=== PATIENT | male | born 1965 | race Caucasian/White ===

== ENCOUNTER 2016-08-26 18:06 | Emergency (ER) | payer OTHER ==
[2016-08-26] MEDS ORDERED: ALBUTEROL SULFATE 2.5 MG/0.5 ML INH NEB SOLN As Ordered ONE (19:20)
--- NOTE | 2016-08-26 19:22 | REP ---
PA and lateral chest: There are no comparisons. The lung mei are clear. The cardiac size is normal The bobbi, mediastinum, and bony thorax are unremarkable. Impression: Negative PA and lateral chest. Signed by Bayron Fabian MD 08/26/2016 07:14 P
[2016-08-26 19:39] LABS: BASO % 0.7 % (0.0-1.0); EOS % 1.1 % (0.0-3.0); LARGE UNSTAINED CELL # 0.1 K/mm3 (0.0-0.4); LYMPH # 1.5 K/mm3 (1.5-4.5); LYMPH % 30.3 % (24.0-44.0); MEAN CORPUSCULAR HEMOGLOBIN 29.9 pg (27.0-33.0); MEAN CORPUSCULAR HGB CONC 34.4 g/dl (32.0-36.5); MEAN CORPUSCULAR VOLUME 86.8 fl (80.0-96.0); MONO # 0.3 K/mm3 (0.0-0.8); NEUTROPHILS # 2.8 K/mm3 (1.8-7.7); NEUTROPHILS % 58.8 % (36.0-66.0); PLATELET COUNT, AUTOMATED 145 k/mm3 (150-450); RED CELL DISTRIBUTION WIDTH 11.4 % (11.5-14.5); WHITE BLOOD COUNT 4.8 K/mm3 (4.0-10.0)
[2016-08-26 19:59] LABS: ANION GAP 7 MEQ/L (8-16); BLOOD UREA NITROGEN 17 MG/DL (7-18); CALCIUM LEVEL 8.3 MG/DL (8.5-10.1); CARBON DIOXIDE LEVEL 31 MEQ/L (21-32); CHLORIDE LEVEL 106 MEQ/L (98-107); CREATININE FOR GFR 1.04 MG/DL (0.70-1.30); GLOMERULAR FILTRATION RATE > 60.0 (>56); GLUCOSE, FASTING 91 MG/DL (70-105); POTASSIUM SERUM 3.8 MEQ/L (3.5-5.1); SODIUM LEVEL 144 MEQ/L (136-145)
[2016-08-26] MEDS ORDERED: DOXYCYCLINE HYCLATE 100 MG TAB As Ordered ONE (20:39)
[2016-08-26] MEDS ORDERED: predniSONE 20 MG TAB As Ordered ONE (20:39)
[2016-08-26] MEDS ORDERED: BENZONATATE 100 MG CAP As Ordered ONE (20:39)
--- NOTE | 2016-08-26 20:52 | EDDOCDS ---
Physician Documentation [facility] Name: Alejandro Guadarrama Age: 50 yrs Sex: Male : 1965 Arrival Date: 08/26/2016 Time: 18:06 Bed TR1 Private MD: Dayana Jones G. Disposition: 08/26/16 20:26 Discharged to Home/Self Care. Impression: Acute bronchitis. - Condition is Stable. - Discharge Instructions: Acute Bronchitis. - Prescriptions for Doxycycline Hyclate 100 mg Oral Tablet - take 1 tablet by ORAL route every 12 hours; 20 tablet. Prednisone 20 mg Oral Tablet - take 2 tablet by ORAL route once daily for 5 days; 10 tablet. benzonatate 200 mg Oral Capsule - take 1 capsule by ORAL route 3 times per day As needed; 30 capsule. - Medication Reconciliation, Local Pharmacy Hours form. - Follow up: Dayana Jones; When: 2 - 3 days; Reason: Recheck today's complaints, Continuance of care. - Problem is new. - Symptoms have improved. Historical: - Allergies: Bees; - Home Meds: 1. meloxicam 7.5 mg oral tab 1 tab once daily (Last dose: 08/25/2016) 2. Prilosec 10 mg Oral cpDR once daily 3. ibuprofen 200 mg Oral tab 2 tabs as needed (Last dose: 08/26/2016 09:30) - PMHx: GERD; Arthritis; - PSHx: none; - Social history: Smoking status: Patient states former smoker of tobacco. No barriers to communication noted, The patient speaks fluent Chilean, Speaks appropriately for age. - Family history: Not pertinent. - : The pt / caregiver states he / she is not on anticoagulants. Home medication list is obtained from the patient. - Exposure Risk Screening:: None identified. Vital Signs: 08/26 18:08 BP 127 / 77; Pulse 81; Resp 18 S; Temp 98.1(O); Pulse Ox 98% on R/A; Weight 79.38 kg / dd6 175 lbs (R); Height 5 ft. 10 in. (177.80 cm) (R); 20:36 BP 122 / 70; Pulse 80; Resp 17; Temp 100.6(TE); Pulse Ox 99% on R/A; lr2 18:08 Body Mass Index 25.11 (79.38 kg, 177.80 cm) dd6 MDM: 19:03 -Blood Culture (Adults Only), peripheral from different site, or from device/port/PICC ck7 etc. if present ordered. 19:03 Albuterol 2.5 mg Nebulizer once ordered. ck7 19:03 Call Respiratory ordered. ck7 19:03 Obtain sample by nasopharyngeal swab ordered. ck7 19:04 CBC with Diff Ordered. EDMS 19:04 MED Profile Ordered. EDMS 19:04 -Blood Culture Ordered. EDMS 19:04 -Influenza A&B Rapid Antigen - Nose Ordered. EDMS 19:05 Chest, 2 View (pa\E\lat) Ordered. EDMS 19:20 Call Respiratory complete. lr2 19:33 -Blood Culture (Adults Only), peripheral from different site, or from device/port/PICC lr2 etc. if present complete. 19:37 BLOOD CULTURES Ordered. EDMS 19:49 CBC with Diff Reviewed. ck7 19:49 Chest, 2 View (pa\E\lat) Reviewed. ck7 20:03 Financial registration complete. zo 20:03 MED Profile Reviewed. ck7 20:23 -Influenza A&B Rapid Antigen - Nose Reviewed. ck7 20:24 predniSONE 40 mg PO once; administer with food or milk ordered. ck7 20:24 Doxycycline 100 mg PO once ordered. ck7 20:24 Tessalon 200 mg PO once ordered. ck7 20:40 [facility] Payment Agreement was scanned into [employer] and attached to record. zo Administered Medications: 19:34 Drug: Albuterol 2.5 mg [albuterol sulfate 2.5 mg/0.5 mL solution for nebulization (0.5 jc3 mL)] Route: Nebulizer; 20:46 Drug: predniSONE 40 mg [prednisone 20 mg tablet (2 tabs)] Route: PO; jo3 20:46 Drug: Doxycycline 100 mg [doxycycline hyclate 100 mg tablet (1 tabs)] Route: PO; jo3 20:46 Drug: Tessalon 200 mg Route: PO; jo3 Signatures: Dispatcher [employer] EDMS Lidia Fox RN RN jo3 Jose Vieira Christopher, LORE-C RPA-Cck7 Ariana Sandoval RN RN Marta Garcia2 Taras Chand jc3 The chart was reviewed and I authenticate all verbal orders and agree with the evaluation and treatment provided.Attachments: 20:40 [facility] [place] Payment Agreement zo MTDD
--- NOTE | 2016-08-26 20:52 | EDDOCDS ---
Nurse's Notes [facility] Name: Alejandro Guadarrama Age: 50 yrs Sex: Male : 1965 Arrival Date: 08/26/2016 Time: 18:06 Bed TR1 Private MD: Dayana Jones G. Diagnosis: Acute bronchitis Presentation: 08/26 18:11 Presenting complaint: Patient states: It feels like I have acute bronchitis. I'm js15 difficulty breathing and when I cough it feels like my chest is coming up". Adult Sepsis Screening: The patient does not have new or worsening altered mentation. Patient's respiratory rate is less than 22. Systolic blood pressure is greater than 100. Patient has a qSOFA score of 0- Negative Sepsis Screen. Suicide/Homicide risk assessment- the patient denies having any suicidal and/or homicidal ideations and does not present with any other emotional, behavioral or mental health complaints. Status: . Transition of care: patient was not received from another setting of care. 18:11 Acuity: XIMENA Level 4 js15 18:11 Method Of Arrival: Walkin/Carried/Asstd js15 Triage Assessment: 18:15 General: Appears in no apparent distress, Behavior is appropriate for age, cooperative. js15 Pain: Location: chest Pain currently is 5 out of 10 on a pain scale. Is intermittent Aggravated by coughing. HIV screening NA for this visit Offered previously. Respiratory: Reports cough that is productive, pain with cough. Derm: Skin is pink, warm & dry. Historical: - Allergies: Bees; - Home Meds: 1. meloxicam 7.5 mg oral tab 1 tab once daily (Last dose: 08/25/2016) 2. Prilosec 10 mg Oral cpDR once daily 3. ibuprofen 200 mg Oral tab 2 tabs as needed (Last dose: 08/26/2016 09:30) - PMHx: GERD; Arthritis; - PSHx: none; - Social history: Smoking status: Patient states former smoker of tobacco. No barriers to communication noted, The patient speaks fluent Egyptian, Speaks appropriately for age. - Family history: Not pertinent. - : The pt / caregiver states he / she is not on anticoagulants. Home medication list is obtained from the patient. - Exposure Risk Screening:: None identified. Screenin:47 Screening information is obtained from the patient. Fall risk: No risks identified. jo3 Assistance ADL's: requires no assistance with activities of daily living. Abuse/DV Screen: The patient / caregiver reports he/she is: not in a situation that causes fear, pain or injury. Nutritional screening: No deficits noted. Advance Directives: There is no active DNR order. home support is adequate. Assessment: 20:47 Reassessment: Patient appears in no apparent distress at this time. Patient states jo3 feeling better. Patient states symptoms have improved. Neurological: No deficits noted. Level of Consciousness is awake, alert, Oriented to person, place, time. Respiratory: Airway is patent Respiratory effort is even, unlabored. Derm: Skin is pink, warm & dry. Vital Signs: 18:08 BP 127 / 77; Pulse 81; Resp 18 S; Temp 98.1(O); Pulse Ox 98% on R/A; Weight 79.38 kg dd6 (R); Height 5 ft. 10 in. (177.80 cm) (R); 20:36 BP 122 / 70; Pulse 80; Resp 17; Temp 100.6(TE); Pulse Ox 99% on R/A; lr2 18:08 Body Mass Index 25.11 (79.38 kg, 177.80 cm) dd6 Vitals: 18:08 Log In Time: August 26, 2016 at 18:06. dd6 ED Course: 18:07 Patient visited by Reno Miramontes PCA. dd6 18:07 Dayana Jones is Private Physician. dd6 18:07 Patient moved to Waiting dd6 18:09 Patient moved to Pre RCE dd6 18:12 Triage Initiated js15 18:30 Patient moved to Triage 1 jb5 18:34 [facility] ck7 18:34 Blanca Leung MD is Attending Physician. ck7 18:34 Patient visited by Jimenez Caldwell RPA-C. ck7 19:05 Patient moved to PD jo3 19:13 Patient visited by Jimenez Caldwell RPA-C. ck7 19:36 -Blood Culture Sent. lr2 19:36 MED Profile Sent. lr2 19:36 CBC with Diff Sent. lr2 19:36 -Influenza A&B Rapid Antigen - Nose Sent. lr2 19:37 BLOOD CULTURES Sent. lr2 19:47 Patient visited by Jimenez Caldwell RPA-C. ck7 19:49 Chest, 2 View (pa\\E\\lat) Returned. EDMS 20:23 Patient visited by Jimenez Caldwell RPA-C. ck7 20:26 Dayana Jones is Referral Physician. ck7 20:40 [facility] Payment Agreement was scanned into [employer] and attached to record. zo 20:46 Patient moved to TR1 lr2 20:47 The patient / caregiver is instructed regarding the plan of care and ED course. jo3 20:47 No IV's were initiated during this patient's visit. No procedures done that require jo3 assistance. Administered Medications: 19:34 Drug: Albuterol 2.5 mg [albuterol sulfate 2.5 mg/0.5 mL solution for nebulization (0.5 jc3 mL)] Route: Nebulizer; 20:46 Drug: predniSONE 40 mg [prednisone 20 mg tablet (2 tabs)] Route: PO; jo3 20:46 Drug: Doxycycline 100 mg [doxycycline hyclate 100 mg tablet (1 tabs)] Route: PO; jo3 20:46 Drug: Tessalon 200 mg Route: PO; jo3 RT: 19:34 Initial Med Neb Given as ordered. Respiratory: Breath sounds are coarse bilaterally. jc3 Breath sounds with wheezes bilaterally. in right middle lobe, left lower lobe and right lower lobe. 19:38 Respiratory: Breath sounds with crackles bilaterally. in left lower lobe, right lower jc3 lobe, left posterior lower lobe, right posterior middle lobe and right posterior lower lobe Breath sounds with wheezes. Order Results: Lab Order: CBC with Diff; SPEC'M 08/26/16 19:29 Test: WHITE BLOOD COUNT; Value: 4.8; Range: 4.0-10.0; Units: K/mm3; Status: F Test: RED BLOOD COUNT; Value: 5.21; Range: 4.30-6.10; Units: M/mm3; Status: F Test: HEMOGLOBIN; Value: 15.6; Range: 14.0-18.0; Units: g/dl; Status: F Test: HEMATOCRIT; Value: 45.2; Range: 42.0-52.0; Units: %; Status: F Test: MEAN CORPUSCULAR VOLUME; Value: 86.8; Range: 80.0-96.0; Units: fl; Status: F Test: MEAN CORPUSCULAR HEMOGLOBIN; Value: 29.9; Range: 27.0-33.0; Units: pg; Status: F Test: MEAN CORPUSCULAR HGB CONC; Value: 34.4; Range: 32.0-36.5; Units: g/dl; Status: F Test: RED CELL DISTRIBUTION WIDTH; Value: 11.4; Range: 11.5-14.5; Abnormal: Below low normal; Units: %; Status: F Test: PLATELET COUNT, AUTOMATED; Value: 145; Range: 150-450; Abnormal: Below low normal; Units: k/mm3; Status: F Test: NEUTROPHILS %; Value: 58.8; Range: 36.0-66.0; Units: %; Status: F Test: LYMPH %; Value: 30.3; Range: 24.0-44.0; Units: %; Status: F Test: MONO %; Value: 6.0; Range: 0.0-5.0; Abnormal: Above high normal; Units: %; Status: F Test: EOS %; Value: 1.1; Range: 0.0-3.0; Units: %; Status: F Test: BASO %; Value: 0.7; Range: 0.0-1.0; Units: %; Status: F Test: LARGE UNSTAINED CELL %; Value: 3.0; Range: 0.0-4.0; Units: %; Status: F Test: NEUTROPHILS #; Value: 2.8; Range: 1.8-7.7; Units: K/mm3; Status: F Test: LYMPH #; Value: 1.5; Range: 1.5-4.5; Units: K/mm3; Status: F Test: MONO #; Value: 0.3; Range: 0.0-0.8; Units: K/mm3; Status: F Test: EOS #; Value: 0.0; Range: 0.0-0.50; Units: K/mm3; Status: F Test: BASO #; Value: 0.0; Range: 0.0-0.2; Units: K/mm3; Status: F Test: LARGE UNSTAINED CELL #; Value: 0.1; Range: 0.0-0.4; Units: K/mm3; Status: F Lab Order: MED Profile; SPEC'M 08/26/16 19:29 Test: GLUCOSE, FASTING; Value: 91; Range: 70-105; Units: MG/DL; Status: F Test: BLOOD UREA NITROGEN; Value: 17; Range: 7-18; Units: MG/DL; Status: F Test: CREATININE FOR GFR; Value: 1.04; Range: 0.70-1.30; Units: MG/DL; Status: F Test: GLOMERULAR FILTRATION RATE; Value: > 60.0; Range: >56; Status: F Test: SODIUM LEVEL; Value: 144; Range: 136-145; Units: MEQ/L; Status: F Test: POTASSIUM SERUM; Value: 3.8; Range: 3.5-5.1; Units: MEQ/L; Status: F Test: CHLORIDE LEVEL; Value: 106; Range: 98-107; Units: MEQ/L; Status: F Test: CARBON DIOXIDE LEVEL; Value: 31; Range: 21-32; Units: MEQ/L; Status: F Test: ANION GAP; Value: 7; Range: 8-16; Abnormal: Below low normal; Units: MEQ/L; Status: F Test: CALCIUM LEVEL; Value: 8.3; Range: 8.5-10.1; Abnormal: Below low normal; Units: MG/DL; Status: F Test Note: ; Units are mL/min/1.73 m2 Chronic Kidney Disease Staging per NKF: Stage I & II GFR >=60 Normal to Mildly Decreased Stage III GFR 30-59 Moderately Decreased Stage IV GFR 15-29 Severely Decreased Stage V GFR <15 Very Little GFR Left ESRD GFR <15 on [employer]IAL SERVICE WORKER Lab Order: -Influenza A&B Rapid Antigen - Nose; SPEC'M 08/26/16 19:33 Test: INFLUENZA A RAPID SCR by ICA; Value: INFLUENZA A RESULTS NEGATIVE; Status: F Test: INFLUENZA A RAPID SCR by ICA; Value: Comments:; Status: F Test: INFLUENZA B RAPID SCR by ICA; Value: INFLUENZA B RESULTS NEGATIVE; Status: F Test Note: ; The Influenza test is a direct rapid immunoassay for the qualitative detection of Influenza viral antigen. Cell culture (Viral Culture) testing should be considered to confirm NEGATIVE results and to assist in detecting other viruses that can provide similar clinical symptoms. Please contact the lab within 24 hours ([phone]) if confirmatory testing is desired. Radiology Order: Chest, 2 View (pa\\E\\lat) Test: Chest, 2 View (pa\\E\\lat) REASON FOR EXAMINATION: Cough; PA and lateral chest:; ; There are no comparisons.; ; ; ; The lung mei are clear. The cardiac size is normal; ; The bobbi, mediastinum, and bony thorax are unremarkable.; ; Impression:; ; Negative PA and lateral chest.; ; ; Signed by; Bayron Fabian MD 08/26/2016 07:14 P; Outcome: 20:26 Discharge ordered by Provider. ck7 20:47 Discharge Assessment: Patient awake, alert and oriented x 3. No cognitive and/or jo3 functional deficits noted. Patient verbalized understanding of disposition instructions. patient administered narcotics - no. The following High Risk Discharge criteria are identified: None. Discharged to home ambulatory, with significant other. Condition: stable Condition: improved. Discharge instructions given to patient, Instructed on discharge instructions, follow up and referral plans. medication usage, Demonstrated understanding of instructions, medications, Pt was receptive of discharge instructions/ teaching. Prescriptions given X 3. No special radiology studies were completed. Property sent home with patient. 20:51 Patient left the ED. jo3 Signatures: Dispatcher [employer] EDMS Ada Gutierrez, HVAC ENGINEERING TECHNICIAN HVAC ENGINEERING TECHNICIAN jb5 Lidia Fox RN RN jo3 Jose Vieira Joseph jc3 Reno Miramontes, HVAC ENGINEERING TECHNICIAN HVAC ENGINEERING TECHNICIAN dd6 Jimenez Caldwell, RPA-C RPA-Cck7 Ariana Sandoval,RN RN js15 Marta Long lr2 Corrections: (The following items were deleted from the chart) 20:46 20:36 BP 122 / 70; Pulse 80bpm; Resp 17bpm; Pulse Ox 80% RA; Temp 100.6F Temporal; lr2 lr2 MTDD
--- NOTE | 2016-08-28 21:53 | EDDOCDS ---
Physician Documentation [facility] Name: Alejandro Guadarrama Age: 50 yrs Sex: Male : 1965 Arrival Date: 08/26/2016 Time: 18:06 Bed TR1 Private MD: Dayana Jones G. Disposition: 08/26/16 20:26 Discharged to Home/Self Care. Impression: Acute bronchitis. - Condition is Stable. - Discharge Instructions: Acute Bronchitis. - Prescriptions for Doxycycline Hyclate 100 mg Oral Tablet - take 1 tablet by ORAL route every 12 hours; 20 tablet. Prednisone 20 mg Oral Tablet - take 2 tablet by ORAL route once daily for 5 days; 10 tablet. benzonatate 200 mg Oral Capsule - take 1 capsule by ORAL route 3 times per day As needed; 30 capsule. - Medication Reconciliation, Local Pharmacy Hours form. - Follow up: Dayana Jones; When: 2 - 3 days; Reason: Recheck today's complaints, Continuance of care. - Problem is new. - Symptoms have improved. Historical: - Allergies: Bees; - Home Meds: 1. meloxicam 7.5 mg oral tab 1 tab once daily (Last dose: 08/25/2016) 2. Prilosec 10 mg Oral cpDR once daily 3. ibuprofen 200 mg Oral tab 2 tabs as needed (Last dose: 08/26/2016 09:30) - PMHx: GERD; Arthritis; - PSHx: none; - Social history: Smoking status: Patient states former smoker of tobacco. No barriers to communication noted, The patient speaks fluent Argentine, Speaks appropriately for age. - Family history: Not pertinent. - : The pt / caregiver states he / she is not on anticoagulants. Home medication list is obtained from the patient. - Exposure Risk Screening:: None identified. Vital Signs: 08/26 18:08 BP 127 / 77; Pulse 81; Resp 18 S; Temp 98.1(O); Pulse Ox 98% on R/A; Weight 79.38 kg / dd6 175 lbs (R); Height 5 ft. 10 in. (177.80 cm) (R); 20:36 BP 122 / 70; Pulse 80; Resp 17; Temp 100.6(TE); Pulse Ox 99% on R/A; lr2 18:08 Body Mass Index 25.11 (79.38 kg, 177.80 cm) dd6 MDM: 19:03 -Blood Culture (Adults Only), peripheral from different site, or from device/port/PICC ck7 etc. if present ordered. 19:03 Albuterol 2.5 mg Nebulizer once ordered. ck7 19:03 Call Respiratory ordered. ck7 19:03 Obtain sample by nasopharyngeal swab ordered. ck7 19:04 CBC with Diff Ordered. EDMS 19:04 MED Profile Ordered. EDMS 19:04 -Blood Culture Ordered. EDMS 19:04 -Influenza A&B Rapid Antigen - Nose Ordered. EDMS 19:05 Chest, 2 View (pa\E\lat) Ordered. EDMS 19:20 Call Respiratory complete. lr2 19:33 -Blood Culture (Adults Only), peripheral from different site, or from device/port/PICC lr2 etc. if present complete. 19:37 BLOOD CULTURES Ordered. EDMS 19:49 CBC with Diff Reviewed. ck7 19:49 Chest, 2 View (pa\E\lat) Reviewed. ck7 20:03 Financial registration complete. zo 20:03 MED Profile Reviewed. ck7 20:23 -Influenza A&B Rapid Antigen - Nose Reviewed. ck7 20:24 predniSONE 40 mg PO once; administer with food or milk ordered. ck7 20:24 Doxycycline 100 mg PO once ordered. ck7 20:24 Tessalon 200 mg PO once ordered. ck7 20:40 [facility] Payment Agreement was scanned into [employer] and attached to record. zo 08/27 07:46 T-Sheet-- Draft Copy was scanned into [employer] and attached to record. [facility] Administered Medications: 08/26 19:34 Drug: Albuterol 2.5 mg [albuterol sulfate 2.5 mg/0.5 mL solution for nebulization (0.5 jc3 mL)] Route: Nebulizer; 20:46 Drug: predniSONE 40 mg [prednisone 20 mg tablet (2 tabs)] Route: PO; jo3 20:46 Drug: Doxycycline 100 mg [doxycycline hyclate 100 mg tablet (1 tabs)] Route: PO; jo3 20:46 Drug: Tessalon 200 mg Route: PO; jo3 Signatures: Dispatcher [employer] EDMS Lidia Fox RN RN jo3 Olin, Zoeann zo Kwaczala, Christopher, RPA-C RPA-Cck7 Ariana Sandoval,RN RN js15 Blanca Nugent Laura lr2 Taras Chand jc3 The chart was reviewed and I authenticate all verbal orders and agree with the evaluation and treatment provided.Attachments: 20:40 [facility] Payment Agreement zo 08/27 07:46 T-Sheet-- Draft Copy [facility] Chart Complete MTDD
--- NOTE | 2016-08-28 21:53 | EDDOCDS ---
Physician Documentation [facility] Name: Alejandro Guadarrama Age: 50 yrs Sex: Male : 1965 Arrival Date: 08/26/2016 Time: 18:06 Bed TR1 Private MD: Dayana Jones G. Disposition: 08/26/16 20:26 Discharged to Home/Self Care. Impression: Acute bronchitis. - Condition is Stable. - Discharge Instructions: Acute Bronchitis. - Prescriptions for Doxycycline Hyclate 100 mg Oral Tablet - take 1 tablet by ORAL route every 12 hours; 20 tablet. Prednisone 20 mg Oral Tablet - take 2 tablet by ORAL route once daily for 5 days; 10 tablet. benzonatate 200 mg Oral Capsule - take 1 capsule by ORAL route 3 times per day As needed; 30 capsule. - Medication Reconciliation, Local Pharmacy Hours form. - Follow up: Dayana Jones; When: 2 - 3 days; Reason: Recheck today's complaints, Continuance of care. - Problem is new. - Symptoms have improved. Historical: - Allergies: Bees; - Home Meds: 1. meloxicam 7.5 mg oral tab 1 tab once daily (Last dose: 08/25/2016) 2. Prilosec 10 mg Oral cpDR once daily 3. ibuprofen 200 mg Oral tab 2 tabs as needed (Last dose: 08/26/2016 09:30) - PMHx: GERD; Arthritis; - PSHx: none; - Social history: Smoking status: Patient states former smoker of tobacco. No barriers to communication noted, The patient speaks fluent Somali, Speaks appropriately for age. - Family history: Not pertinent. - : The pt / caregiver states he / she is not on anticoagulants. Home medication list is obtained from the patient. - Exposure Risk Screening:: None identified. Vital Signs: 08/26 18:08 BP 127 / 77; Pulse 81; Resp 18 S; Temp 98.1(O); Pulse Ox 98% on R/A; Weight 79.38 kg / dd6 175 lbs (R); Height 5 ft. 10 in. (177.80 cm) (R); 20:36 BP 122 / 70; Pulse 80; Resp 17; Temp 100.6(TE); Pulse Ox 99% on R/A; lr2 18:08 Body Mass Index 25.11 (79.38 kg, 177.80 cm) dd6 MDM: 19:03 -Blood Culture (Adults Only), peripheral from different site, or from device/port/PICC ck7 etc. if present ordered. 19:03 Albuterol 2.5 mg Nebulizer once ordered. ck7 19:03 Call Respiratory ordered. ck7 19:03 Obtain sample by nasopharyngeal swab ordered. ck7 19:04 CBC with Diff Ordered. EDMS 19:04 MED Profile Ordered. EDMS 19:04 -Blood Culture Ordered. EDMS 19:04 -Influenza A&B Rapid Antigen - Nose Ordered. EDMS 19:05 Chest, 2 View (pa\E\lat) Ordered. EDMS 19:20 Call Respiratory complete. lr2 19:33 -Blood Culture (Adults Only), peripheral from different site, or from device/port/PICC lr2 etc. if present complete. 19:37 BLOOD CULTURES Ordered. EDMS 19:49 CBC with Diff Reviewed. ck7 19:49 Chest, 2 View (pa\E\lat) Reviewed. ck7 20:03 Financial registration complete. zo 20:03 MED Profile Reviewed. ck7 20:23 -Influenza A&B Rapid Antigen - Nose Reviewed. ck7 20:24 predniSONE 40 mg PO once; administer with food or milk ordered. ck7 20:24 Doxycycline 100 mg PO once ordered. ck7 20:24 Tessalon 200 mg PO once ordered. ck7 20:40 [facility] Payment Agreement was scanned into [employer] and attached to record. zo 08/27 07:46 T-Sheet-- Draft Copy was scanned into [employer] and attached to record. [facility] Administered Medications: 08/26 19:34 Drug: Albuterol 2.5 mg [albuterol sulfate 2.5 mg/0.5 mL solution for nebulization (0.5 jc3 mL)] Route: Nebulizer; 20:46 Drug: predniSONE 40 mg [prednisone 20 mg tablet (2 tabs)] Route: PO; jo3 20:46 Drug: Doxycycline 100 mg [doxycycline hyclate 100 mg tablet (1 tabs)] Route: PO; jo3 20:46 Drug: Tessalon 200 mg Route: PO; jo3 Signatures: Dispatcher [employer] EDMS Lidia Fox RN RN jo3 Olin, Zoeann zo Kwaczala, Christopher, RPA-C RPA-Cck7 Ariana Sandoval,RN RN js15 Blanca Nugent Laura lr2 Taras Chand jc3 The chart was reviewed and I authenticate all verbal orders and agree with the evaluation and treatment provided.Attachments: 20:40 [facility] Payment Agreement zo 08/27 07:46 T-Sheet-- Draft Copy [facility] Chart Complete MTDD
--- NOTE | 2016-08-28 21:53 | EDDOCDS ---
Nurse's Notes [facility] Name: Alejandro Guadarrama Age: 50 yrs Sex: Male : 1965 Arrival Date: 08/26/2016 Time: 18:06 Bed TR1 Private MD: Dayana Jones G. Diagnosis: Acute bronchitis Presentation: 08/26 18:11 Presenting complaint: Patient states: It feels like I have acute bronchitis. I'm js15 difficulty breathing and when I cough it feels like my chest is coming up". Adult Sepsis Screening: The patient does not have new or worsening altered mentation. Patient's respiratory rate is less than 22. Systolic blood pressure is greater than 100. Patient has a qSOFA score of 0- Negative Sepsis Screen. Suicide/Homicide risk assessment- the patient denies having any suicidal and/or homicidal ideations and does not present with any other emotional, behavioral or mental health complaints. Status: . Transition of care: patient was not received from another setting of care. 18:11 Acuity: XIMENA Level 4 js15 18:11 Method Of Arrival: Walkin/Carried/Asstd js15 Triage Assessment: 18:15 General: Appears in no apparent distress, Behavior is appropriate for age, cooperative. js15 Pain: Location: chest Pain currently is 5 out of 10 on a pain scale. Is intermittent Aggravated by coughing. HIV screening NA for this visit Offered previously. Respiratory: Reports cough that is productive, pain with cough. Derm: Skin is pink, warm & dry. Historical: - Allergies: Bees; - Home Meds: 1. meloxicam 7.5 mg oral tab 1 tab once daily (Last dose: 08/25/2016) 2. Prilosec 10 mg Oral cpDR once daily 3. ibuprofen 200 mg Oral tab 2 tabs as needed (Last dose: 08/26/2016 09:30) - PMHx: GERD; Arthritis; - PSHx: none; - Social history: Smoking status: Patient states former smoker of tobacco. No barriers to communication noted, The patient speaks fluent Palauan, Speaks appropriately for age. - Family history: Not pertinent. - : The pt / caregiver states he / she is not on anticoagulants. Home medication list is obtained from the patient. - Exposure Risk Screening:: None identified. Screenin:47 Screening information is obtained from the patient. Fall risk: No risks identified. jo3 Assistance ADL's: requires no assistance with activities of daily living. Abuse/DV Screen: The patient / caregiver reports he/she is: not in a situation that causes fear, pain or injury. Nutritional screening: No deficits noted. Advance Directives: There is no active DNR order. home support is adequate. Assessment: 20:47 Reassessment: Patient appears in no apparent distress at this time. Patient states jo3 feeling better. Patient states symptoms have improved. Neurological: No deficits noted. Level of Consciousness is awake, alert, Oriented to person, place, time. Respiratory: Airway is patent Respiratory effort is even, unlabored. Derm: Skin is pink, warm & dry. Vital Signs: 18:08 BP 127 / 77; Pulse 81; Resp 18 S; Temp 98.1(O); Pulse Ox 98% on R/A; Weight 79.38 kg dd6 (R); Height 5 ft. 10 in. (177.80 cm) (R); 20:36 BP 122 / 70; Pulse 80; Resp 17; Temp 100.6(TE); Pulse Ox 99% on R/A; lr2 18:08 Body Mass Index 25.11 (79.38 kg, 177.80 cm) dd6 Vitals: 18:08 Log In Time: August 26, 2016 at 18:06. dd6 ED Course: 18:07 Patient visited by Reno Miramontes PCA. dd6 18:07 Dayana Jones is Private Physician. dd6 18:07 Patient moved to Waiting dd6 18:09 Patient moved to Pre RCE dd6 18:12 Triage Initiated js15 18:30 Patient moved to Triage 1 jb5 18:34 [facility] ck7 18:34 Blanca Leung MD is Attending Physician. ck7 18:34 Patient visited by Jimenez Caldwell RPA-C. ck7 19:05 Patient moved to PD jo3 19:13 Patient visited by Jimenez Caldwell RPA-C. ck7 19:36 -Blood Culture Sent. lr2 19:36 MED Profile Sent. lr2 19:36 CBC with Diff Sent. lr2 19:36 -Influenza A&B Rapid Antigen - Nose Sent. lr2 19:37 BLOOD CULTURES Sent. lr2 19:47 Patient visited by Jimenez Caldwell RPA-C. ck7 19:49 Chest, 2 View (pa\\E\\lat) Returned. EDMS 20:23 Patient visited by Jimenez Caldwell RPA-C. ck7 20:26 Dayana Jones is Referral Physician. ck7 20:40 [facility] Payment Agreement was scanned into [employer] and attached to record. zo 20:46 Patient moved to TR1 lr2 20:47 The patient / caregiver is instructed regarding the plan of care and ED course. jo3 20:47 No IV's were initiated during this patient's visit. No procedures done that require jo3 assistance. 08/27 07:46 T-Sheet-- Draft Copy was scanned into [employer] and attached to record. [facility] Administered Medications: 08/26 19:34 Drug: Albuterol 2.5 mg [albuterol sulfate 2.5 mg/0.5 mL solution for nebulization (0.5 jc3 mL)] Route: Nebulizer; 20:46 Drug: predniSONE 40 mg [prednisone 20 mg tablet (2 tabs)] Route: PO; jo3 20:46 Drug: Doxycycline 100 mg [doxycycline hyclate 100 mg tablet (1 tabs)] Route: PO; jo3 20:46 Drug: Tessalon 200 mg Route: PO; jo3 RT: 19:34 Initial Med Neb Given as ordered. Respiratory: Breath sounds are coarse bilaterally. jc3 Breath sounds with wheezes bilaterally. in right middle lobe, left lower lobe and right lower lobe. 19:38 Respiratory: Breath sounds with crackles bilaterally. in left lower lobe, right lower jc3 lobe, left posterior lower lobe, right posterior middle lobe and right posterior lower lobe Breath sounds with wheezes. Order Results: Lab Order: CBC with Diff; SPEC'M 08/26/16 19:29 Test: WHITE BLOOD COUNT; Value: 4.8; Range: 4.0-10.0; Units: K/mm3; Status: F Test: RED BLOOD COUNT; Value: 5.21; Range: 4.30-6.10; Units: M/mm3; Status: F Test: HEMOGLOBIN; Value: 15.6; Range: 14.0-18.0; Units: g/dl; Status: F Test: HEMATOCRIT; Value: 45.2; Range: 42.0-52.0; Units: %; Status: F Test: MEAN CORPUSCULAR VOLUME; Value: 86.8; Range: 80.0-96.0; Units: fl; Status: F Test: MEAN CORPUSCULAR HEMOGLOBIN; Value: 29.9; Range: 27.0-33.0; Units: pg; Status: F Test: MEAN CORPUSCULAR HGB CONC; Value: 34.4; Range: 32.0-36.5; Units: g/dl; Status: F Test: RED CELL DISTRIBUTION WIDTH; Value: 11.4; Range: 11.5-14.5; Abnormal: Below low normal; Units: %; Status: F Test: PLATELET COUNT, AUTOMATED; Value: 145; Range: 150-450; Abnormal: Below low normal; Units: k/mm3; Status: F Test: NEUTROPHILS %; Value: 58.8; Range: 36.0-66.0; Units: %; Status: F Test: LYMPH %; Value: 30.3; Range: 24.0-44.0; Units: %; Status: F Test: MONO %; Value: 6.0; Range: 0.0-5.0; Abnormal: Above high normal; Units: %; Status: F Test: EOS %; Value: 1.1; Range: 0.0-3.0; Units: %; Status: F Test: BASO %; Value: 0.7; Range: 0.0-1.0; Units: %; Status: F Test: LARGE UNSTAINED CELL %; Value: 3.0; Range: 0.0-4.0; Units: %; Status: F Test: NEUTROPHILS #; Value: 2.8; Range: 1.8-7.7; Units: K/mm3; Status: F Test: LYMPH #; Value: 1.5; Range: 1.5-4.5; Units: K/mm3; Status: F Test: MONO #; Value: 0.3; Range: 0.0-0.8; Units: K/mm3; Status: F Test: EOS #; Value: 0.0; Range: 0.0-0.50; Units: K/mm3; Status: F Test: BASO #; Value: 0.0; Range: 0.0-0.2; Units: K/mm3; Status: F Test: LARGE UNSTAINED CELL #; Value: 0.1; Range: 0.0-0.4; Units: K/mm3; Status: F Lab Order: MED Profile; SPEC'M 08/26/16 19:29 Test: GLUCOSE, FASTING; Value: 91; Range: 70-105; Units: MG/DL; Status: F Test: BLOOD UREA NITROGEN; Value: 17; Range: 7-18; Units: MG/DL; Status: F Test: CREATININE FOR GFR; Value: 1.04; Range: 0.70-1.30; Units: MG/DL; Status: F Test: GLOMERULAR FILTRATION RATE; Value: > 60.0; Range: >56; Status: F Test: SODIUM LEVEL; Value: 144; Range: 136-145; Units: MEQ/L; Status: F Test: POTASSIUM SERUM; Value: 3.8; Range: 3.5-5.1; Units: MEQ/L; Status: F Test: CHLORIDE LEVEL; Value: 106; Range: 98-107; Units: MEQ/L; Status: F Test: CARBON DIOXIDE LEVEL; Value: 31; Range: 21-32; Units: MEQ/L; Status: F Test: ANION GAP; Value: 7; Range: 8-16; Abnormal: Below low normal; Units: MEQ/L; Status: F Test: CALCIUM LEVEL; Value: 8.3; Range: 8.5-10.1; Abnormal: Below low normal; Units: MG/DL; Status: F Test Note: ; Units are mL/min/1.73 m2 Chronic Kidney Disease Staging per NKF: Stage I & II GFR >=60 Normal to Mildly Decreased Stage III GFR 30-59 Moderately Decreased Stage IV GFR 15-29 Severely Decreased Stage V GFR <15 Very Little GFR Left ESRD GFR <15 on GUN REPAIR CLERK Lab Order: -Blood Culture; SPEC'M 08/26/16 19:29 Test: BLOOD CULTURE; Value: No growth after 24 hours . All specimens observed; Status: F Test: BLOOD CULTURE; Value: for 5 days. Results final at that time.; Status: F Test: BLOOD CULTURE; Value: No Growth after 48 hours. All Specimens observed; Status: F Test: BLOOD CULTURE; Value: for 7 days. Results final at that time.; Status: F Lab Order: -Influenza A&B Rapid Antigen - Nose; SPEC'M 08/26/16 19:33 Test: INFLUENZA A RAPID SCR by ICA; Value: INFLUENZA A RESULTS NEGATIVE; Status: F Test: INFLUENZA A RAPID SCR by ICA; Value: Comments:; Status: F Test: INFLUENZA B RAPID SCR by ICA; Value: INFLUENZA B RESULTS NEGATIVE; Status: F Test Note: ; The Influenza test is a direct rapid immunoassay for the qualitative detection of Influenza viral antigen. Cell culture (Viral Culture) testing should be considered to confirm NEGATIVE results and to assist in detecting other viruses that can provide similar clinical symptoms. Please contact the lab within 24 hours ([phone]) if confirmatory testing is desired. Lab Order: BLOOD CULTURES; SPEC'M 08/26/16 19:34 Test: BLOOD CULTURE; Value: No growth after 24 hours . All specimens observed; Status: F Test: BLOOD CULTURE; Value: for 5 days. Results final at that time.; Status: F Test: BLOOD CULTURE; Value: No Growth after 48 hours. All Specimens observed; Status: F Test: BLOOD CULTURE; Value: for 7 days. Results final at that time.; Status: F Radiology Order: Chest, 2 View (pa\\E\\lat) Test: Chest, 2 View (pa\\E\\lat) REASON FOR EXAMINATION: Cough; PA and lateral chest:; ; There are no comparisons.; ; ; ; The lung mei are clear. The cardiac size is normal; ; The bobbi, mediastinum, and bony thorax are unremarkable.; ; Impression:; ; Negative PA and lateral chest.; ; ; Signed by; Bayron Fabian MD 08/26/2016 07:14 P; Outcome: 20:26 Discharge ordered by Provider. ck7 20:47 Discharge Assessment: Patient awake, alert and oriented x 3. No cognitive and/or jo3 functional deficits noted. Patient verbalized understanding of disposition instructions. patient administered narcotics - no. The following High Risk Discharge criteria are identified: None. Discharged to home ambulatory, with significant other. Condition: stable Condition: improved. Discharge instructions given to patient, Instructed on discharge instructions, follow up and referral plans. medication usage, Demonstrated understanding of instructions, medications, Pt was receptive of discharge instructions/ teaching. Prescriptions given X 3. No special radiology studies were completed. Property sent home with patient. 20:51 Patient left the ED. jo3 Signatures: Dispatcher [employer] ED Ada Gutierrez, DOOR CLOSER MECHANIC DOOR CLOSER MECHANIC jb5 Lidia Fox,RN RN jo3 Jose Vieira Joseph jc3 SimeonReno poole, DOOR CLOSER MECHANIC DOOR CLOSER MECHANIC dd6 Jimenez Caldwell, RPA-C RPA-Cck7 Ariana Sandoval RN RN Blanca Jackson Laura lr2 Corrections: (The following items were deleted from the chart) 20:46 20:36 BP 122 / 70; Pulse 80bpm; Resp 17bpm; Pulse Ox 80% RA; Temp 100.6F Temporal; lr2 lr2 Chart Complete MTDD
== END 2016-08-26 20:51 | disposition home or self-care (01) ==
LOC: M ED 18:06
DX: J20.9 Acute bronchitis, unspecified (principal); K21.9 Gastro-esophageal reflux disease without esophagitis; M19.90 Unspecified osteoarthritis, unspecified site; Z87.891 Personal history of nicotine dependence; Z79.899 Other long term (current) drug therapy; Z91.030 Bee allergy status

== ENCOUNTER → 2021-03-12 | Outpatient (CLI) | payer BC ==
[2021-03-12 18:38] LABS: HEMATOCRIT 49.3 % (42.0-52.0); MEAN CORPUSCULAR HEMOGLOBIN 29.8 pg (27.0-33.0); MEAN CORPUSCULAR HGB CONC 34.5 g/dl (32.0-36.5); MEAN CORPUSCULAR VOLUME 86.3 fl (80.0-96.0); PLATELET COUNT, AUTOMATED 306 10^3/uL (150-450); RED BLOOD COUNT 5.71 10^6/uL (4.30-6.10); WHITE BLOOD COUNT 10.4 10^3/uL (4.0-10.0)
== END ==
LOC: M LAB 18:07
PROVIDERS: ATTEND Physician Assistant
DX: S63.636D Sprain of interphalangeal joint of right little finger, subsequent encounter (principal); X58.XXXD Exposure to other specified factors, subsequent encounter; Y92.89 Other specified places as the place of occurrence of the external cause; Y93.89 Activity, other specified; Y99.8 Other external cause status

== ENCOUNTER → 2021-06-25 | Outpatient (CLI) | payer BC ==
[~2021-06-25] MED LIST: BUSP5TA PO; MOBI4TAB PO; ROSU10TA6 PO
[2021-06-25 14:07] LABS: ALT/SGPT 64 U/L (12-78); BILIRUBIN,TOTAL 0.9 MG/DL (0.2-1.0); BLOOD UREA NITROGEN 17 MG/DL (7-18); CALCIUM LEVEL 8.1 MG/DL (8.5-10.1); CARBON DIOXIDE LEVEL 26 MEQ/L (21-32); CHLORIDE LEVEL 108 MEQ/L (98-107); CHOLESTEROL LEVEL 166 MG/DL (<200); CREATININE FOR GFR 0.96 MG/DL (0.70-1.30); GLOMERULAR FILTRATION RATE > 60.0 (>56); GLUCOSE, FASTING 89 MG/DL (70-100); HDL CHOLESTEROL 38 MG/DL (>40); POTASSIUM SERUM 3.9 MEQ/L (3.5-5.1); SODIUM LEVEL 140 MEQ/L (136-145); TRIGLYCERIDES LEVEL 220 MG/DL (<150)
[2021-06-25 14:08] LABS: ALBUMIN 3.8 GM/DL (3.2-5.2); CHOLESTEROL RISK RATIO 4.368 (<5); LDL CHOLESTEROL 84 MG/DL (<100); NON-HDL-C 128 MG/DL; TOTAL PROTEIN 7.3 GM/DL (6.4-8.2)
== END ==
LOC: M LAB 13:12
PROVIDERS: ATTEND Internal Medicine Cardiovascular Disease
DX: E78.5 Hyperlipidemia, unspecified (principal)

== ENCOUNTER → 2021-07-26 | Outpatient (CLI) | payer BC | LOC: M LABSMTC 11:16 | PROVIDERS: ATTEND Anesthesiology | DX: Z01.818 Encounter for other preprocedural examination (principal); Z11.52 Encounter for screening for COVID-19 ==

== ENCOUNTER 2021-07-29 08:59 | Day surgery (SDC) | payer BC ==
[~2021-07-29] VITALS: Ht 172.7 cm; Wt 85.7 kg
[~2021-07-29 08:59] MED LIST changes: +LIDOCAINE 2% 100MG/5ML SDV (FOR ANES.) As Ordered ONE; +propofoL 200 MG/20 ML VIAL As Ordered ONE
[2021-07-29] MEDS: NS 1,000 ML IV SCH ×2 (09:29→09:30)
--- NOTE | 2021-07-29 10:28 | ROOR ---
Patient Name: Alejandro Guadarrama Procedure Date: 07/29/2021 10:09 AM Date of : 1965 Age: 55 Room: [facility] Gender: Male Note Status: Finalized Procedure: Colonoscopy Indications: Rectal bleeding, Constipation Providers: Jeffrey Stanton Jr, MD Referring MD: Moises Strauss MD Requesting Provider: Medicines: Propofol per Anesthesia Complications: No immediate complications. Procedure: Pre-Anesthesia Assessment: - Prior to the procedure, a History and Physical was performed, and patient medications and allergies were reviewed. The patient is competent. The risks and benefits of the procedure and the sedation options and risks were discussed with the patient. All questions were answered and informed consent was obtained. Patient identification and proposed procedure were verified by the physician and the nurse in the pre-procedure area and in the procedure room. Mental Status Examination: alert and oriented. Airway Examination: normal oropharyngeal airway and neck mobility. Respiratory Examination: clear to auscultation. CV Examination: normal. ASA Grade Assessment: II - A patient with mild systemic disease. After reviewing the risks and benefits, the patient was deemed in satisfactory condition to undergo the procedure. The anesthesia plan was to use moderate sedation / analgesia (conscious sedation). Immediately prior to administration of medications, the patient was re-assessed for adequacy to receive sedatives. The heart rate, respiratory rate, oxygen saturations, blood pressure, adequacy of pulmonary ventilation, and response to care were monitored throughout the procedure. The physical status of the patient was re-assessed after the procedure. The Colonoscope was introduced through the anus and advanced to the cecum, identified by appendiceal orifice and ileocecal valve. The colonoscopy was performed without difficulty. The patient tolerated the procedure well. The quality of the bowel preparation was adequate. Findings: The rectum, recto-sigmoid colon, descending colon, transverse colon, ascending colon, cecum, appendiceal orifice and ileocecal valve appeared normal. A few small and large-mouthed diverticula were found in the sigmoid colon. Non-bleeding internal hemorrhoids were found during endoscopy. The hemorrhoids were moderate and Grade II (internal hemorrhoids that prolapse but reduce spontaneously). Impression: - The rectum, recto-sigmoid colon, descending colon, transverse colon, ascending colon, cecum, appendiceal orifice and ileocecal valve are normal. - Diverticulosis in the sigmoid colon. - No specimens collected. Recommendation: - Discharge patient to home (ambulatory). - Repeat colonoscopy in 10 years for screening purposes. Procedure Code(s): --- Professional --- 81452, Colonoscopy, flexible; diagnostic, including collection of specimen(s) by brushing or washing, when performed (separate procedure) Diagnosis Code(s): --- Professional --- K62.5, Hemorrhage of anus and rectum K59.00, Constipation, unspecified K57.30, Diverticulosis of large intestine without perforation or abscess without bleeding CPT copyright 2019 [employer]. All rights reserved. The codes documented in this report are preliminary and upon hospital laboratory technician review may be revised to meet current compliance requirements. Jeffrey Stanton MD Jeffrey Stanton Jr, MD 07/29/2021 10:27:53 AM Electronically signed by Jeffrey Stanton Jr, MD Number of Addenda: 0 Note Initiated On: 07/29/2021 10:09 AM Estimated Blood Loss: Estimated blood loss: none.
[2021-07-29 10:53] VITALS: BP 115/68
== END 2021-07-29 11:05 | disposition home or self-care (01) ==
LOC: M OPP 08:59
PROVIDERS: ATTEND Surgery
DX: K62.5 Hemorrhage of anus and rectum (principal); K57.30 Diverticulosis of large intestine without perforation or abscess without bleeding; K64.1 Second degree hemorrhoids; K59.00 Constipation, unspecified; Z79.899 Other long term (current) drug therapy; Z91.030 Bee allergy status

== ENCOUNTER 2022-05-06 04:29 | Emergency (ER) | payer OTHER, BC ==
[~2022-05-06] VITALS: Ht 175.3 cm; Wt 81.8 kg
[~2022-05-06 04:29] MED LIST changes: -LIDOCAINE 2% 100MG/5ML SDV (FOR ANES.) As Ordered ONE; -propofoL 200 MG/20 ML VIAL As Ordered ONE
[2022-05-06] MEDS ORDERED: LOSA50TA28 PO (04:35)
[2022-05-06] MEDS ORDERED: NEBI5TAB PO (04:35)
[2022-05-06] MEDS ORDERED: methocarbamoL 500 MG TAB PO ONE (06:40)
[2022-05-06] MEDS ORDERED: KETOROLAC 30 MG/ML 1ML VIAL IM ONE (06:40)
[2022-05-06] MEDS ORDERED: LIDOCAINE 5% (LIDODERM) PATCH TD ONE (06:40)
[2022-05-06] MEDS ORDERED: PERCOCET 5MG/325MG TAB PO ONE (08:30)
[2022-05-06] MEDS ORDERED: PERC5TAB12 PO ×2 (09:28→09:46)
[2022-05-06 10:09] VITALS: BP 139/59
[2022-05-06] MEDS ORDERED: **NOTE PATIENT COMMENT** MISC XX SCH (21:00)
== END 2022-05-06 10:10 | disposition home or self-care (01) ==
LOC: M ED 04:29
DX: M47.27 Other spondylosis with radiculopathy, lumbosacral region (principal); I10 Essential (primary) hypertension; Z91.030 Bee allergy status
CPT/HCPCS: 72110; 96372; 99283; J1885

== ENCOUNTER 2024-10-23 07:02 | Emergency (ER) | payer BC ==
[~2024-10-23] VITALS: Ht 174 cm; Wt 85.3 kg
[~2024-10-23 07:02] MED LIST changes: +LOSA50TA28 PO; +NEBI5TAB2 PO; +PERC5TAB12 PO; -ROSU10TA6 PO; +ROSU10TA61 PO
[2024-10-23] MEDS ORDERED: PANT40TA29 (07:21)
[2024-10-23] MEDS ORDERED: MELO7.5T35 (07:21)
[2024-10-23] MEDS ORDERED: ACET650T15 PO (07:21)
[2024-10-23] MEDS ORDERED: ROSU10TA61 (07:21)
[2024-10-23 08:23] LABS: BASO # 0.1 10^3/uL (0.0-0.2); BASO % 0.4 % (0.0-1.0); EOS # 0.1 10^3/uL (0.0-0.5); EOS % 0.3 % (0.0-3.0); HEMATOCRIT 43.9 % (42.0-52.0); HEMOGLOBIN 15.6 g/dl (13.5-17.5); LYMPH # 0.7 10^3/uL (1.5-5.0); LYMPH % 4.4 % (24.0-44.0); MEAN CORPUSCULAR HEMOGLOBIN 30.3 pg (27.0-33.0); MEAN CORPUSCULAR HGB CONC 35.5 g/dl (32.0-36.5); MEAN CORPUSCULAR VOLUME 85.2 fl (80.0-96.0); MONO # 1.1 10^3/uL (0.0-0.8); MONO % 6.6 % (2.0-8.0); NEUTROPHILS # 14.1 10^3/uL (1.5-8.5); PLATELET COUNT, AUTOMATED 240 10^3/uL (150-450); RED BLOOD COUNT 5.15 10^6/uL (4.30-6.10)
[2024-10-23 09:00] LABS: ALBUMIN 3.9 G/DL (3.2-5.2); BILIRUBIN,DIRECT 0.4 MG/DL (<0.4); CALCIUM LEVEL 8.9 MG/DL (8.5-10.1); CREATININE FOR GFR 1.42 MG/DL (0.70-1.30); GLOMERULAR FILTRATION RATE 54.3 (>56); POTASSIUM SERUM 4.1 MMOL/L (3.5-5.1); TOTAL PROTEIN 7.2 G/DL (5.7-8.2)
[2024-10-23] MEDS: ONDANSETRON 4MG 2ML VIAL IV ONE (09:18)
[2024-10-23] MEDS ORDERED: ACETAMINOPHEN 325 MG TAB PO ONE (10:00)
[2024-10-23] MEDS: KETOROLAC 30 MG/ML 1ML VIAL IV ONE (10:05)
[2024-10-23 10:19] LABS: CK-MB VALUE MASS < 1.0 NG/ML (<3.6)
[2024-10-23 10:27] LABS: CPK CREATINE PHOSPHOKINASE 83 U/L (46-171)
[2024-10-23] MEDS ORDERED: ONDA-282 PO (11:34)
[2024-10-23] MEDS: NS (Normal Saline) 0.9% 1,000 ML IV ONE ×2 (11:49→13:00)
[2024-10-23 15:15] VITALS: BP 105/58; TEMP 97.9; O2SAT 96
== END 2024-10-23 15:29 | disposition home or self-care (01) ==
LOC: M ED 07:02
DX: U07.1 COVID-19 (principal); I10 Essential (primary) hypertension; K21.9 Gastro-esophageal reflux disease without esophagitis; E78.00 Pure hypercholesterolemia, unspecified; F41.9 Anxiety disorder, unspecified; Z91.030 Bee allergy status; Z79.1 Long term (current) use of non-steroidal anti-inflammatories (NSAID); Z79.899 Other long term (current) drug therapy
CPT/HCPCS: 80048; 80076; 82550; 82553; 83690; 84484; 85025; 87486; 87581; 87633; 87798; 93005; 96361; 96374; 96375; 99284; J1885; J2405